=== PATIENT | female | born 1945 | race African-American/Black ===

== ENCOUNTER 2018-03-22 10:38 | Emergency (ER) | payer MEDICARE | END 2018-03-22 12:20 | disposition home or self-care (01) | LOC: ER 10:38 | DX: H57.8 Other specified disorders of eye and adnexa (principal); I10 Essential (primary) hypertension; E78.00 Pure hypercholesterolemia, unspecified; E11.9 Type 2 diabetes mellitus without complications; E03.9 Hypothyroidism, unspecified; Z88.8 Allergy status to other drugs, medicaments and biological substances | CPT/HCPCS: 70450; 70486; 99284-25 ==

== ENCOUNTER → 2022-01-13 | Outpatient (CLI) | payer MEDICARE ==
[2018-03-22 12:24] VITALS: BP 195/87
--- NOTE | 2022-01-13 12:50 | CARD ---
MR#: [id number] Date of Study: 01/13/2022 Ordering Physician: MADISON PARKS, Referring Physician: MADISON PARKS, Tech: [facility] APPROVED REPORT EXAM: Two-dimensional and M-mode echocardiogram with Doppler and color Doppler. Other Information Quality : Technically LimitedHR: 50bpm Rhythm : NSR INDICATION Dyspnea Hypertension/HCVD RISK FACTORS Hypertension Obesity Diabetes 2D DIMENSIONS RVDd3.8 (2.9-3.5cm)Left Atrium(2D)3.8 (1.6-4.0cm) IVSd1.3 (0.7-1.1cm)Aortic Root(2D)3.5 (2.0-3.7cm) LVDd5.1 (3.9-5.9cm)LVOT Diameter2.3 (1.8-2.4cm) PWd1.2 (0.7-1.1cm)IVSs1.7 (0.8-1.2cm) LVDs4.9 (2.5-4.0cm)FS (%) 5.5 % PWs1.5 (0.8-1.2cm)SV15.4 ml LVEF(%)12.3 (>50%) Aortic Valve AoV Peak Keshawn.136.1cm/sAoV VTI30.8cm AO Peak GR.7.4mmHgLVOT Peak Keshawn.109.5cm/s LVOT VTI 29.11cmAO Mean GR.4mmHg TRAVIS (VMAX)2.66pg3CVF (VTI)3.89cm2 AI P 1/2 [id number] Mitral Valve MV E Xolkjtbo37.6cm/sMV DECEL [id number] MV A Mninzgyg16.2cm/sMV EUT22kq E/A Ratio0.9MVA (PHT)2.49cm2 TDI E/Lateral E'11.6E/Medial E'12.2 Pulmonary Valve PV Peak Rbknjssc630.5cm/sPV Peak Grad.5mmHg Tricuspid Valve TR P. Bksxeitc114uf/sTR Peak Gr.32mmHg LEFT VENTRICLE The left ventricle is normal size. There is mild concentric left ventricular hypertrophy. The left ve ntricular systolic function is normal. Estimated ejection fraction 60%. There is normal LV segmental wall motion. Transmitral Doppler flow pattern is Grade I-abnormal relaxation pattern. RIGHT VENTRICLE The right ventricle is normal size. There is normal right ventricular wall thickness. The right ventr icular systolic function is normal. ATRIA The left atrium is mildly dilated. The right atrium is mildly dilated. The interatrial septum is inta ct with no evidence for an atrial septal defect or patent foramen ovale as noted on 2-D or Doppler im aging. AORTIC VALVE The aortic valve is normal in structure and function. Doppler and Color Flow revealed mild aortic reg urgitation. There is no significant aortic valvular stenosis. MITRAL VALVE The mitral valve is normal in structure and function. There is no evidence of mitral valve prolapse. There is no mitral valve stenosis. Doppler and Color-flow revealed mild mitral regurgitation. TRICUSPID VALVE The tricuspid valve is normal in structure and function. Doppler and Color Flow revealed mild tricusp id regurgitation. Estimated PAP 35 mmHg. There is no tricuspid valve stenosis. PULMONIC VALVE The pulmonary valve is normal in structure and function. Doppler and Color Flow revealed mild pulmoni c valvular regurgitation. GREAT VESSELS The aortic root is normal in size. The ascending aorta is normal in size. The IVC is normal in size a nd collapses >50% with inspiration. PERICARDIAL EFFUSION There is no evidence of significant pericardial effusion. Critical Notification Critical Value: No <Conclusion> The left ventricular systolic function is normal. Estimated ejection fraction 60%. There is normal LV segmental wall motion. Transmitral Doppler flow pattern is Grade I-abnormal relaxation pattern. Mild aortic regurgitation. Mild mitral regurgitation. Mild tricuspid regurgitation. Estimated PAP 35 mmHg. There is no evidence of significant pericardial effusion. Signed by : Ajit Melo, Electronically Approved : 01/13/2022 12:49:24
== END ==
LOC: ECHO 10:45
PROVIDERS: ATTEND Internal Medicine
DX: I08.8 Other rheumatic multiple valve diseases (principal); I10 Essential (primary) hypertension; R06.09 Other forms of dyspnea
CPT/HCPCS: 93306; C8929